=== PATIENT | female | born 1985 | race Caucasian/White ===

== ENCOUNTER 2020-02-26 12:40 | Emergency (ER) | payer OTHER ==
[~2020-02-26] VITALS: Ht 160 cm; Wt 97.7 kg
[2020-02-26 12:48] VITALS: BP 159/96; TEMP 97.6
[2020-02-26 13:10] LABS: BASO # 0.1 (0.0-0.2); BASO % 0.6 % (0.0-2.0); EOS # 0.1 (0.0-0.7); EOS % 1.3 % (0-4.0); GRAN # 3.6 (1.4-6.5); GRAN % 42.9 % (42.2-75.2); HEMOGLOBIN 12.9 g/dl (12.5-16.0); LYMPH # 3.4 (1.2-3.4); LYMPH % 41.3 % (20.0-51.0); MEAN CELL VOLUME 87 fl (80.0-100.0); MEAN CORPUSCULAR HEMOGLOBIN 30 pg (27.0-31.0); MEAN CORPUSCULAR HGB CONC 34 g/dl (33.0-37.0); MONO # 1.1 (0.1-0.6); MONO % 13.4 % (1.7-9.3); PLATELET COUNT 372 K/mm3 (130-400); RED BLOOD COUNT 4.37 M/mm3 (4.10-5.30); REDCELL DISTRIBUTION WIDTH-CV 13.2 % (11.5-14.5)
[2020-02-26 13:32] LABS: ALBUMIN 4.2 gm/dL (3.5-5.0); BILIRUBIN,TOTAL 0.5 mg/dL (0.0-1.0); C-REACTIVE PROTEIN 0.9 mg/dL (0.0-0.9); CALCIUM 9.1 mg/dL (8.4-10.2); CREATININE, serum 0.97 (0.52-1.25); POTASSIUM 3.4 mmol/L (3.4-5.0); TOTAL PROTEIN 7.8 gm/dL (6.4-8.2)
[2020-02-26 14:37] LABS: COLLECTION METHOD CLEAN CATCH
[2020-02-26 14:49] LABS: PH 6 (5-8); URINE APPEARANCE Clear; URINE BACTERIA Moderate /hpf; URINE BILIRUBIN Negative (NEGATIVE); URINE BLOOD Negative (NEGATIVE); URINE COLOR Straw; URINE GLUCOSE Negative (NEGATIVE); URINE KETONE Negative (NEGATIVE); URINE LEUKOCYTE ESTERASE Negative (NEGATIVE); URINE NITRATE Negative (NEGATIVE); URINE PROTEIN(semi-quant) Negative (NEGATIVE); URINE RBC 0-2 /hpf; URINE UROBILINOGEN Negative (NEGATIVE)
[2020-02-26 15:28] VITALS: PULSE 80
== END 2020-02-26 15:28 | disposition home or self-care (01) ==
LOC: COL.ER 12:40
PROVIDERS: Physician Assistant
DX: K29.00 Acute gastritis without bleeding (principal); Z32.02 Encounter for pregnancy test, result negative
CPT/HCPCS: J1170; J2405; J7030